=== PATIENT | male | born 1990 | race African-American/Black ===

== ENCOUNTER 2022-10-30 23:59 | Emergency (ER) | payer OTHER ==
[~2022-10-30] VITALS: Ht 167.6 cm; Wt 84.0 kg
[2022-10-31] MEDS ORDERED: OXYCODONE HCL/ACETAMINOPHEN 5/325MG TABLET PO ONE (06:15)
[2022-10-31] MEDS ORDERED: OXYC-105 PO (06:24)
[2022-10-31] MEDS ORDERED: IBUP-2030 PO (06:24)
[2022-10-31] MEDS ORDERED: AMOX1TAB16 PO (06:24)
[2022-10-31 06:30] VITALS: BP 112/78
== END 2022-10-31 06:30 | disposition home or self-care (01) ==
LOC: ER 23:59
DX: K04.7 Periapical abscess without sinus (principal)
CPT/HCPCS: 99283